=== PATIENT | female | born 1960 | race Caucasian/White ===

== ENCOUNTER 2018-01-25 18:07 | Emergency (ER) | payer MEDICAID, OTHER ==
[~2018-01-25] VITALS: Ht 167.6 cm; Wt 63.4 kg
[~2018-01-25 18:07] MED LIST: ALBU8.5H8 IH; ASPI-144 PO; DULO60CA64 PO; IBUP-1984 PO; LISI-600 PO; OMEP10CA2 PO
[2018-01-25 18:18] VITALS: BP 132/90
[2018-01-25 19:17] LABS: CLARITY,URINE CLEAR (Clear); COLOR,URINE YELLOW (Yellow); GLUCOSE, URINE NEGATIVE (Neg); KETONES,URINE NEGATIVE (Neg); LEUKOCYTE ESTERASE ,URINE NEGATIVE (Neg); NITRITES, URINE NEGATIVE (Neg); OCCULT BLOOD,URINE NEGATIVE (Neg); PROTEIN,URINE NEGATIVE (Neg); UROBILINOGEN,URINE 0.2 E.U/dL (0.2-1.0)
[2018-01-25 19:33] LABS: UA COLLECTION TYPE CLN CATCH MIDSTREAM
[2018-01-25] MEDS ORDERED: IBUP-1984 PO (20:40)
[2018-01-25] MEDS ORDERED: ibuprofen tablet 400 MG TABLET PO ONE (20:40)
== END 2018-01-25 20:50 | disposition home or self-care (01) ==
LOC: ER 18:07
DX: R10.9 Unspecified abdominal pain (principal); R35.0 Frequency of micturition; R39.15 Urgency of urination; R11.0 Nausea; R51 Headache; F12.90 Cannabis use, unspecified, uncomplicated; F15.90 Other stimulant use, unspecified, uncomplicated; G89.29 Other chronic pain; K21.9 Gastro-esophageal reflux disease without esophagitis; Z90.49 Acquired absence of other specified parts of digestive tract; Z90.710 Acquired absence of both cervix and uterus; Z98.890 Other specified postprocedural states; Z88.2 Allergy status to sulfonamides; Z88.6 Allergy status to analgesic agent; Z79.899 Other long term (current) drug therapy; Z59.0 Homelessness; Z60.2 Problems related to living alone
CPT/HCPCS: 81003; 99283

== ENCOUNTER 2018-01-28 10:15 | Emergency (ER) | payer MEDICAID, OTHER ==
[~2018-01-28] VITALS: Ht 167.6 cm; Wt 63.0 kg
[~2018-01-28 10:15] MED LIST changes: -ALBU8.5H8 IH; -ASPI-144 PO; -DULO60CA64 PO; -LISI-600 PO; -OMEP10CA2 PO
[2018-01-28 10:18] VITALS: BP 128/84
[2018-01-28] MEDS ORDERED: CETI-102 PO (10:28)
[2018-01-28] MEDS ORDERED: LIDOcaine 1.5% w/epinephrine 1:200,000 5ml ampul IJ ONE (11:35)
[2018-01-28] MEDS ORDERED: ibuprofen tablet 400 MG TABLET PO ONE (12:25)
== END 2018-01-28 12:33 | disposition home or self-care (01) ==
LOC: ER 10:16
DX: L02.412 Cutaneous abscess of left axilla (principal); K21.9 Gastro-esophageal reflux disease without esophagitis; G89.29 Other chronic pain; F12.90 Cannabis use, unspecified, uncomplicated; F15.90 Other stimulant use, unspecified, uncomplicated; Z90.49 Acquired absence of other specified parts of digestive tract; Z90.710 Acquired absence of both cervix and uterus; Z98.890 Other specified postprocedural states; Z88.2 Allergy status to sulfonamides; Z88.6 Allergy status to analgesic agent; Z79.82 Long term (current) use of aspirin; Z79.899 Other long term (current) drug therapy; Z59.0 Homelessness; Z60.2 Problems related to living alone
CPT/HCPCS: 10060; 99283; A6449; J3490

== ENCOUNTER 2018-02-23 09:09 | Emergency (ER) | payer MEDICAID ==
[~2018-02-23] VITALS: Ht 578.2 cm; Wt 75.7 kg
[~2018-02-23 09:09] MED LIST changes: +CETI-102 PO; +LACT1CAP65 PO
[2018-02-23] MEDS ORDERED: proCHLORperazine 10 MG/2 ml inj IV ONE (10:05)
[2018-02-23] MEDS ORDERED: LORazepam 2 mg/ml vial IV ONE (10:05)
[2018-02-23] MEDS ORDERED: ibuprofen tablet 400 MG TABLET PO ONE (10:05)
[2018-02-23] MEDS ORDERED: dexamethasone 4mg/ml inj IV ONE (10:05)
[2018-02-23] MEDS ORDERED: aspirin 325mg tablet PO ONE (10:05)
[2018-02-23] MEDS ORDERED: acetaminophen 325mg tablet PO ONE (10:05)
[2018-02-23] MEDS ORDERED: normal saline 1000ML IV soln IVB ONE (10:05)
[2018-02-23] MEDS ORDERED: AMOX500C2 PO (12:01)
[2018-02-23 13:09] VITALS: BP 144/81
== END 2018-02-23 13:11 | disposition home or self-care (01) ==
LOC: ER 09:10
DX: J32.9 Chronic sinusitis, unspecified (principal); R51 Headache; F12.90 Cannabis use, unspecified, uncomplicated; F15.90 Other stimulant use, unspecified, uncomplicated; K21.9 Gastro-esophageal reflux disease without esophagitis; G89.29 Other chronic pain; Z90.49 Acquired absence of other specified parts of digestive tract; Z90.89 Acquired absence of other organs; Z98.890 Other specified postprocedural states; Z88.2 Allergy status to sulfonamides; Z88.6 Allergy status to analgesic agent; Z79.899 Other long term (current) drug therapy; Z59.0 Homelessness; Z60.2 Problems related to living alone
CPT/HCPCS: 96374; 96375; 99284; J0780; J1100; J2060; J7030

== ENCOUNTER 2018-03-30 08:46 | Emergency (ER) | payer MEDICAID ==
[~2018-03-30] VITALS: Ht 167.6 cm; Wt 78.5 kg
[2018-03-30] MEDS ORDERED: benzonatate 100mg capsule PO ONE (09:20)
[2018-03-30] MEDS ORDERED: pseudoephedrine 30mg tablet PO ONE (09:20)
[2018-03-30 10:00] VITALS: BP 112/81
[2018-03-30] MEDS ORDERED: BENZ-16 PO (10:04)
[2018-03-30] MEDS ORDERED: ALBU18HF2 INH (10:04)
== END 2018-03-30 10:15 | disposition home or self-care (01) ==
LOC: ER 08:47
DX: J06.9 Acute upper respiratory infection, unspecified (principal); K21.9 Gastro-esophageal reflux disease without esophagitis; G89.29 Other chronic pain; F12.90 Cannabis use, unspecified, uncomplicated; F15.90 Other stimulant use, unspecified, uncomplicated; Z90.49 Acquired absence of other specified parts of digestive tract; Z90.710 Acquired absence of both cervix and uterus; Z88.2 Allergy status to sulfonamides; Z88.6 Allergy status to analgesic agent; Z79.899 Other long term (current) drug therapy; Z59.0 Homelessness; Z60.2 Problems related to living alone
CPT/HCPCS: 71046; 99284

== ENCOUNTER 2018-07-04 14:31 | Emergency (ER) | payer MEDICAID ==
[~2018-07-04] VITALS: Ht 167.6 cm; Wt 64.0 kg
[~2018-07-04 14:31] MED LIST changes: +ALBU18HF2 INH
[2018-07-04 14:38] VITALS: BP 122/82
[2018-07-04 16:03] LABS: CLARITY,URINE CLOUDY (Clear); COLOR,URINE YELLOW (Yellow); GLUCOSE, URINE NEGATIVE (Neg); KETONES,URINE TRACE mg/dl (Neg); LEUKOCYTE ESTERASE ,URINE TRACE (Neg); NITRITES, URINE NEGATIVE (Neg); OCCULT BLOOD,URINE LARGE (Neg); PROTEIN,URINE 100 mg/dl (Neg); UROBILINOGEN,URINE 0.2 E.U/dL (0.2-1.0)
[2018-07-04 16:04] LABS: UA COLLECTION TYPE CLN CATCH MIDSTREAM
[2018-07-04 16:08] LABS: RBC,URINE 20-50 /HPF (0-2); WBC,URINE TNTC /HPF (0-4)
[2018-07-04 16:09] LABS: BACTERIA,URINE 2+ /HPF (Neg); CAL OXALATE CRYSTALS 2+ /HPF (NEGATIVE); MUCUS STRANDS FEW /LPF (Neg); SQUAMOUS EPITHELIAL CELL,UR FEW /LPF (FEW)
[2018-07-04] MEDS ORDERED: CEPH-572 PO (16:12)
[2018-07-04] MEDS ORDERED: PERM60CR19 TP (16:12)
[2018-07-04] MEDS ORDERED: PHEN-716 PO (16:12)
== END 2018-07-04 16:45 | disposition home or self-care (01) ==
LOC: ER 14:32
DX: N39.0 Urinary tract infection, site not specified (principal); B86 Scabies; K21.9 Gastro-esophageal reflux disease without esophagitis; G89.29 Other chronic pain; F12.90 Cannabis use, unspecified, uncomplicated; F15.90 Other stimulant use, unspecified, uncomplicated; Z90.49 Acquired absence of other specified parts of digestive tract; Z90.710 Acquired absence of both cervix and uterus; Z98.890 Other specified postprocedural states; Z88.2 Allergy status to sulfonamides; Z88.6 Allergy status to analgesic agent; Z79.2 Long term (current) use of antibiotics; Z79.899 Other long term (current) drug therapy; Z60.2 Problems related to living alone; Z59.0 Homelessness
CPT/HCPCS: 81001; 87077; 87088; 87186; 99283

== ENCOUNTER 2019-02-21 14:50 | Emergency (ER) | payer MEDICAID ==
[~2019-02-21] VITALS: Ht 170.2 cm; Wt 72.7 kg
[~2019-02-21 14:50] MED LIST changes: +LIDO20SO16 PO; +ONDA4TAB6 PO; +PHEN-716 PO
[2019-02-21 15:30] VITALS: BP 117/47
[2019-02-21] MEDS ORDERED: LIDOcaine 1% 30ml preserv. free vial IJ ONE (17:30)
[2019-02-21] MEDS ORDERED: HYDR-4383 PO (17:47)
--- NOTE | 2019-02-21 17:59 | NUR ---
SEAMUS CALLED REGARDING INJURY CAUSED BY PT'S BOYFRIEND, OFFICER TO CALL BACK FOR REPORT
== END 2019-02-21 19:00 | disposition home or self-care (01) ==
LOC: ER 14:51
DX: S62.637A Displaced fracture of distal phalanx of left little finger, initial encounter for closed fracture (principal); S62.615A Displaced fracture of proximal phalanx of left ring finger, initial encounter for closed fracture; S63.283A Dislocation of proximal interphalangeal joint of left middle finger, initial encounter; K21.9 Gastro-esophageal reflux disease without esophagitis; G89.29 Other chronic pain; F12.90 Cannabis use, unspecified, uncomplicated; F15.90 Other stimulant use, unspecified, uncomplicated; Z90.49 Acquired absence of other specified parts of digestive tract; Z90.710 Acquired absence of both cervix and uterus; Z98.890 Other specified postprocedural states; Z59.0 Homelessness; Z88.2 Allergy status to sulfonamides; Z88.6 Allergy status to analgesic agent; Y04.0XXA Assault by unarmed brawl or fight, initial encounter; Y93.89 Activity, other specified; Y92.89 Other specified places as the place of occurrence of the external cause; Y99.9 Unspecified external cause status
CPT/HCPCS: 26770; 73130; 73140; 99284; J2001

== ENCOUNTER 2019-02-25 07:42 | Emergency (ER) | payer MEDICAID ==
[~2019-02-25] VITALS: Ht 167.6 cm; Wt 74.0 kg
[~2019-02-25 07:42] MED LIST changes: +HYDR-4383 PO
[2019-02-25] MEDS ORDERED: HYDROcodone/acetaminophen 5mg/325mg tablet PO ONE (08:45)
--- NOTE | 2019-02-25 09:37 | NUR ---
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
[2019-02-25 10:11] VITALS: BP 129/106
== END 2019-02-25 10:27 | disposition home or self-care (01) ==
LOC: ER 07:43
DX: S62.627D Displaced fracture of middle phalanx of left little finger, subsequent encounter for fracture with routine healing (principal); S60.032D Contusion of left middle finger without damage to nail, subsequent encounter; S60.042D Contusion of left ring finger without damage to nail, subsequent encounter; K21.9 Gastro-esophageal reflux disease without esophagitis; G89.29 Other chronic pain; F41.9 Anxiety disorder, unspecified; F31.9 Bipolar disorder, unspecified; F12.90 Cannabis use, unspecified, uncomplicated; F15.90 Other stimulant use, unspecified, uncomplicated; Z86.19 Personal history of other infectious and parasitic diseases; Z90.49 Acquired absence of other specified parts of digestive tract; Z90.710 Acquired absence of both cervix and uterus; Z98.890 Other specified postprocedural states; Z60.2 Problems related to living alone; Z59.0 Homelessness; Z88.2 Allergy status to sulfonamides; Z88.8 Allergy status to other drugs, medicaments and biological substances; Z79.899 Other long term (current) drug therapy; Y04.8XXD Assault by other bodily force, subsequent encounter
CPT/HCPCS: 29125; 73130; 99283

== ENCOUNTER 2019-03-05 13:41 | Emergency (ER) | payer MEDICAID ==
[~2019-03-05] VITALS: Ht 170.2 cm; Wt 73.0 kg
[2019-03-05 13:53] VITALS: BP 136/98
[2019-03-05] MEDS ORDERED: ibuprofen 200mg tablet PO ONE (14:50)
== END 2019-03-05 16:10 | disposition home or self-care (01) ==
LOC: ER 13:41
DX: S62.625D Displaced fracture of middle phalanx of left ring finger, subsequent encounter for fracture with routine healing (principal); S62.627D Displaced fracture of middle phalanx of left little finger, subsequent encounter for fracture with routine healing; K21.9 Gastro-esophageal reflux disease without esophagitis; G89.29 Other chronic pain; F41.9 Anxiety disorder, unspecified; F31.9 Bipolar disorder, unspecified; Z90.49 Acquired absence of other specified parts of digestive tract; Z90.710 Acquired absence of both cervix and uterus; Z98.890 Other specified postprocedural states; Z87.891 Personal history of nicotine dependence; Z62.0 Inadequate parental supervision and control; Z59.0 Homelessness; Z88.2 Allergy status to sulfonamides; Z88.8 Allergy status to other drugs, medicaments and biological substances; Z79.899 Other long term (current) drug therapy; W18.39XD Other fall on same level, subsequent encounter
CPT/HCPCS: 29125; 99284

== ENCOUNTER 2019-03-10 11:48 | Outpatient (CLI) | payer MEDICAID | END 2019-03-10 13:17 | disposition home or self-care (01) | LOC: ORTHO 11:48 | PROVIDERS: ATTEND Orthopaedic Surgery | DX: S62.627D Displaced fracture of middle phalanx of left little finger, subsequent encounter for fracture with routine healing (principal); S62.615D Displaced fracture of proximal phalanx of left ring finger, subsequent encounter for fracture with routine healing; I10 Essential (primary) hypertension; J45.909 Unspecified asthma, uncomplicated; X58.XXXD Exposure to other specified factors, subsequent encounter | CPT/HCPCS: 29125; 73130; G0463 ==

== ENCOUNTER 2019-04-15 18:55 | Emergency (ER) | payer MEDICAID ==
[~2019-04-15] VITALS: Ht 170.2 cm; Wt 59.4 kg
[2019-04-15 19:10] VITALS: BP 130/91
[2019-04-15 19:31] LABS: CLARITY,URINE CLOUDY (Clear)
[2019-04-15 19:38] LABS: UA COLLECTION TYPE VOIDED
[2019-04-15 19:39] LABS: COLOR,URINE RED (Yellow)
[2019-04-15 19:40] LABS: BACTERIA,URINE FEW /HPF (Neg); RBC,URINE TNTC /HPF (0-2); SQUAMOUS EPITHELIAL CELL,UR FEW /LPF (FEW); WBC,URINE 0-4 /HPF (0-4)
[2019-04-15 20:38] LABS: BASOPHILS % (AUTO) 0.7 % (0-1); EOSINOPHILS # (AUTO) 0.2 X10'3 (0-0.9); HEMATOCRIT 31.9 % (35.0-45.0); HEMOGLOBIN 10.5 g/dl (12.0-16.0); LYMPHOCYTES # (AUTO) 1.7 X10'3 (1.1-4.8); LYMPHOCYTES % (AUTO) 33.8 % (21-51); MEAN CORPUSCULAR HEMOGLOBIN 28.1 PG (27.0-31.0); MEAN CORPUSCULAR VOLUME 85.2 FL (78-98); MEAN PLATELET VOLUME 7.6 FL (7.4-10.4); MONOCYTES # (AUTO) 0.4 X10'3 (0-0.9); MONOCYTES % (AUTO) 8.4 % (2-12); NEUTROPHILS # (AUTO) 2.7 X10'3 (1.8-7.7); NEUTROPHILS % (AUTO) 53.1 % (42-75); PLATELET COUNT 235 X10'3 (140-440); RED BLOOD COUNT 3.75 X10'6 (4.20-5.60); RED CELL DISTRIBUTION WIDTH 14.1 % (11.5-14.5); WHITE BLOOD COUNT 5.1 X10'3 (4.5-11.0)
[2019-04-15 20:56] LABS: ALANINE AMINOTRANSFERASE 26 U/L (12-78); ALBUMIN 3.4 G/DL (3.4-5.0); ALKALINE PHOSPHATASE 59 IU/L (46-116); ANION GAP 7 (8-16); ASPARTATE AMINO TRANSFERASE 20 U/L (10-37); BILIRUBIN,TOTAL 0.4 MG/DL (0.1-1.0); BLOOD UREA NITROGEN 18 MG/DL (7-18); CALCIUM 8.4 MG/DL (8.5-10.1); CHLORIDE 111 MMOL/L (99-107); CREATININE 0.75 MG/DL (0.40-0.90); GLUCOSE 89 MG/DL (70-104); LIPASE 138 U/L (73-393); POTASSIUM 3.7 MMOL/L (3.5-5.1); SODIUM 144 MMOL/L (135-145); TOTAL CARBON DIOXIDE 26.2 MMOL/L (24-32); TOTAL PROTEIN 6.8 G/DL (6.4-8.2); eGFR 80 ML/MIN
[2019-04-15] MEDS ORDERED: CefTRIAXone 2gm/D5W 50ml 50 ML IV ONE (21:15)
[2019-04-15] MEDS ORDERED: normal saline 1000ML IV soln IVB ONE (21:15)
[2019-04-15] MEDS ORDERED: acetaminophen 325mg tablet PO ONE (21:30)
[2019-04-15] MEDS ORDERED: PHEN-716 PO (22:13)
[2019-04-15] MEDS ORDERED: CEPH-572 PO (22:13)
== END 2019-04-15 22:36 | disposition home or self-care (01) ==
LOC: ER 18:55
DX: N30.01 Acute cystitis with hematuria (principal); K21.9 Gastro-esophageal reflux disease without esophagitis; G89.29 Other chronic pain; F41.9 Anxiety disorder, unspecified; F31.9 Bipolar disorder, unspecified; Z90.49 Acquired absence of other specified parts of digestive tract; Z90.710 Acquired absence of both cervix and uterus; Z98.890 Other specified postprocedural states; Z59.0 Homelessness; Z88.2 Allergy status to sulfonamides; Z88.6 Allergy status to analgesic agent; Z79.2 Long term (current) use of antibiotics; Z79.899 Other long term (current) drug therapy
CPT/HCPCS: 36415; 74176; 80053; 81001; 83690; 85025; 96365; 99284; J0696; J7030

== ENCOUNTER 2019-09-05 12:16 | Emergency (ER) | payer MEDICAID ==
[~2019-09-05] VITALS: Ht 170.2 cm; Wt 69.9 kg
[~2019-09-05 12:16] MED LIST changes: -CETI-102 PO; +CETI-90 PO
[2019-09-05 12:20] VITALS: BP 131/86
[2019-09-05 12:40] LABS: CLARITY,URINE SLIGHTLY CLOUDY (Clear); COLOR,URINE YELLOW (Yellow); GLUCOSE, URINE NEGATIVE (Neg); KETONES,URINE NEGATIVE (Neg); LEUKOCYTE ESTERASE ,URINE NEGATIVE (Neg); NITRITES, URINE NEGATIVE (Neg); OCCULT BLOOD,URINE NEGATIVE (Neg); PROTEIN,URINE NEGATIVE (Neg); UROBILINOGEN,URINE 0.2 E.U/dL (0.2-1.0)
[2019-09-05 12:44] LABS: UA COLLECTION TYPE NON-SPECIFIED
[2019-09-05 12:59] LABS: BASOPHILS % (AUTO) 0.8 % (0-1); EOSINOPHILS # (AUTO) 0.2 X10'3 (0-0.9); EOSINOPHILS % (AUTO) 3.4 % (0-6); HEMATOCRIT 36.5 % (35.0-45.0); HEMOGLOBIN 12.1 g/dl (12.0-16.0); LYMPHOCYTES # (AUTO) 1.5 X10'3 (1.1-4.8); MEAN CORPUSCULAR HEMOGLOBIN 27.7 PG (27.0-31.0); MEAN CORPUSCULAR VOLUME 83.7 FL (78-98); MEAN PLATELET VOLUME 7.6 FL (7.4-10.4); MONOCYTES # (AUTO) 0.5 X10'3 (0-0.9); MONOCYTES % (AUTO) 8.2 % (2-12); NEUTROPHILS # (AUTO) 3.7 X10'3 (1.8-7.7); NEUTROPHILS % (AUTO) 62.6 % (42-75); PLATELET COUNT 252 X10'3 (140-440); RED BLOOD COUNT 4.36 X10'6 (4.20-5.60); RED CELL DISTRIBUTION WIDTH 14.3 % (11.5-14.5); WHITE BLOOD COUNT 5.9 X10'3 (4.5-11.0)
[2019-09-05 13:02] LABS: BACTERIA,URINE 1+ /HPF (Neg); MUCUS STRANDS MANY /LPF (Neg); RBC,URINE NONE SEEN /HPF (0-2); SQUAMOUS EPITHELIAL CELL,UR MANY /LPF (FEW); WBC,URINE 0-4 /HPF (0-4)
[2019-09-05 13:15] LABS: ALANINE AMINOTRANSFERASE 28 U/L (12-78); ALBUMIN 3.5 G/DL (3.4-5.0); ALBUMIN/GLOBULIN RATIO 0.9 (1.1-1.5); ALKALINE PHOSPHATASE 79 IU/L (46-116); ANION GAP 7 (8-16); ASPARTATE AMINO TRANSFERASE 21 U/L (10-37); BILIRUBIN,TOTAL 0.4 MG/DL (0.1-1.0); BLOOD UREA NITROGEN 8 MG/DL (7-18); BUN/CREATININE RATIO 10.5 (6.6-38.0); CALCIUM 8.9 MG/DL (8.5-10.1); CHLORIDE 107 MMOL/L (99-107); CREATININE 0.76 MG/DL (0.40-0.90); GLUCOSE 97 MG/DL (70-104); LIPASE 172 U/L (73-393); SODIUM 144 MMOL/L (135-145); TOTAL CARBON DIOXIDE 30.2 MMOL/L (24-32); TOTAL PROTEIN 7.6 G/DL (6.4-8.2); eGFR 79 ML/MIN
== END 2019-09-05 13:42 | disposition home or self-care (01) ==
LOC: ER 12:17
DX: R10.11 Right upper quadrant pain (principal); K21.9 Gastro-esophageal reflux disease without esophagitis; G89.29 Other chronic pain; F15.90 Other stimulant use, unspecified, uncomplicated; Z90.49 Acquired absence of other specified parts of digestive tract; Z90.710 Acquired absence of both cervix and uterus; Z98.890 Other specified postprocedural states; Z59.0 Homelessness; Z86.19 Personal history of other infectious and parasitic diseases; Z88.2 Allergy status to sulfonamides; Z88.6 Allergy status to analgesic agent
CPT/HCPCS: 36415; 80053; 81001; 83690; 85025; 99284

== ENCOUNTER 2019-09-09 12:19 | Emergency (ER) | payer MEDICAID ==
[~2019-09-09] VITALS: Ht 170.2 cm; Wt 70.5 kg
[2019-09-09 12:32] VITALS: BP 119/77
[2019-09-09] MEDS ORDERED: ALBU8.5H8 IH (13:36)
[2019-09-09] MEDS ORDERED: BENZ-16 PO (13:36)
[2019-09-09] MEDS ORDERED: GUAI120015 PO (13:36)
== END 2019-09-09 13:58 | disposition home or self-care (01) ==
LOC: ER 12:20
DX: R05 Cough (principal); R06.02 Shortness of breath; R09.81 Nasal congestion; J02.9 Acute pharyngitis, unspecified; R09.89 Other specified symptoms and signs involving the circulatory and respiratory systems; K21.9 Gastro-esophageal reflux disease without esophagitis; G89.29 Other chronic pain; F41.9 Anxiety disorder, unspecified; F31.9 Bipolar disorder, unspecified; F15.90 Other stimulant use, unspecified, uncomplicated; F10.99 Alcohol use, unspecified with unspecified alcohol-induced disorder; Z86.19 Personal history of other infectious and parasitic diseases; Z90.49 Acquired absence of other specified parts of digestive tract; Z90.710 Acquired absence of both cervix and uterus; Z98.890 Other specified postprocedural states; Z60.2 Problems related to living alone; Z59.0 Homelessness; Z88.2 Allergy status to sulfonamides; Z88.8 Allergy status to other drugs, medicaments and biological substances; Z79.899 Other long term (current) drug therapy; Y90.9 Presence of alcohol in blood, level not specified
CPT/HCPCS: 99283

== ENCOUNTER 2023-04-11 14:02 | Emergency (ER) | payer MEDICAID ==
[~2023-04-11] VITALS: Ht 167.6 cm; Wt 77.8 kg
[~2023-04-11 14:02] MED LIST changes: +ALBU8.5H17 IH; +GUAI120015 PO
[2023-04-11 14:21] VITALS: BP 142/93; PULSE 95; TEMP 98.5; O2SAT 99
[2023-04-11] MEDS ORDERED: ketorolac trometh inj. 60 MG/2 ML VIAL IM ONE (14:40)
[2023-04-11] MEDS ORDERED: traMADol 50MG tablet PO ONE (14:40)
[2023-04-11] MEDS ORDERED: TRAM50TA2 PO (14:42)
[2023-04-11 14:53] VITALS: RESP 18
== END 2023-04-11 15:13 | disposition home or self-care (01) ==
LOC: ER 14:03
DX: M62.838 Other muscle spasm (principal); M25.512 Pain in left shoulder; G89.29 Other chronic pain; F15.90 Other stimulant use, unspecified, uncomplicated; Z90.710 Acquired absence of both cervix and uterus; Z59.00 Homelessness unspecified; Z88.2 Allergy status to sulfonamides; Z88.5 Allergy status to narcotic agent; Z79.899 Other long term (current) drug therapy
CPT/HCPCS: 99283